=== PATIENT | female | born 1955 | race Caucasian/White ===

== ENCOUNTER → 2023-09-28 15:01 | Outpatient (REF) | payer OTHER, SELFPAY | LOC: WDC 15:01 | PROVIDERS: ATTENDING PHYSICIAN Family Medicine | DX: Z12.31 Encounter for screening mammogram for malignant neoplasm of breast (principal) | CPT/HCPCS: 77063; 77067 ==

== ENCOUNTER → 2024-04-24 11:13 | Outpatient (REF) | payer OTHER, SELFPAY | LOC: RAD 11:13 | PROVIDERS: ATTENDING PHYSICIAN Internal Medicine Rheumatology; FAMILY PHYSICIAN Family Medicine | DX: M25.50 Pain in unspecified joint (principal) | CPT/HCPCS: 73100; 73560; 73565; 73600 ==

== ENCOUNTER 2024-07-21 14:20 | Emergency (ER) | payer OTHER, SELFPAY ==
[2024-07-21 14:24] VITALS: BP 151/79
--- NOTE | 2024-07-21 14:29 | EDRN ---
refusing imaging in triage.
[2024-07-21 15:35] VITALS: BMI 15.6
--- NOTE | 2024-07-21 16:00 | ED.GENMED ---
History of Present Illness
General
Chief Complaint: Fall
Source: patient
Time Seen by Provider: 07/21/24 15:34
History of Present Illness
History of Present Illness:
69-year-old female with past medical history of hypertension, hypothyroidism and depression presenting to the emergency department for evaluation after she was walking around outside and tripped over a curb striking the right frontal scalp on the
side of the curb injuring her right knee and right wrist in the process. Patient states no LOC, no vomiting, no visual changes. She reports she was able to ambulate following but needed some assistance. Denies any use of anticoagulants. Patient
states it feels as if she just has scrapes on her right knee and that she is able to move the right knee without much difficulty. She states minimal pain to the right wrist.
Past History
Past History
ED Past Medical History: HTN, Hypothyroidism and Psychiatric
ED Past Surgical History: None
Social History
Tobacco: Non-smoker
Alcohol: None
Drug: None
Personal:
Living: with family
Review of Systems
Review of Systems
All Other Systems: ROS reviewed and negative except as documented in HPI and ROS
Phy Exam
Physical Exam
Physical Exam:
GENERAL: Alert , in no apparent distress
HEAD: 2 punctate lacerations just superficial to the right eyebrow, no active bleeding
EYE: conjunctiva clear
NECK: Supple, no midline tenderness
ENT: o/p clr, mmm.
CARDIAC: Regular rate and rhythm
LUNGS: Clear breath sounds bilaterally, no acute respiratory distress, no wheezes/rales/rhonchi
NEUROLOGICAL: Alert and oriented
SKIN: Warm and dry, abrasion to the right anterior patella without any active bleeding. Full range of motion of the right knee and wrist without any difficulty. No focal areas of tenderness.
MUSCULOSKELETAL: well perfused.
PSYCH: Normal and appropriate interaction.
Scores
Heart Failure Risk
Heart Failure Risk Score: Not Applicable
Heart Score for Chest Pain Patients
STEMI patient?: Not applicable
Withdrawal Assessment of Alcohol
Withdrawal Assessment Completed?: Not applicable
Course
Orders/Labs/Results
Orders:
Orders
07/21/24 15:34
CT Head W/o Iv Contrast Urgent
Comment:
Reason For Exam: fall, head strike
Vital Signs
Initial and Last Documented VS:
Initial Vital Signs
Temp Pulse Resp BP Pulse Ox
98 F 71 16 151/79 97
07/21/24 14:24 07/21/24 14:24 07/21/24 14:24 07/21/24 14:24 07/21/24 14:24
Last Documented Vital Signs
Temp Pulse Resp BP Pulse Ox
98 F 71 16 151/79 97
07/21/24 14:24 07/21/24 14:24 07/21/24 14:24 07/21/24 14:24 07/21/24 14:24
MDM/Problems Addressed
Differential Diagnosis Includes:
Abrasion, contusion, concussion, intracranial bleeding, patellar fracture, knee contusion, sprain
MDM/Problems Addressed:
69-year-old female presenting to the ER for evaluation after an accidental trip and fall resulting in minor head injury. Patient does have 2 small punctate laceration just above the right eyebrow measuring less than 2 mm in size. No active
bleeding. Will obtain CT of the head for further evaluation. I offered x-ray of the wrist and knee however patient currently declining. She is also declining anything for pain at present time.
*Radiology
Radiology exam reviewed: radiology read reviewed
*Pulse Oximetry
Patient hypoxic: no
*Critical Care Note
Total Time (30-74mins, 75-104mins- exclusive of procedures): Not Applicable
Patient Management
Escalation/DeEscalation of care consider admission/obs:
Dermabond placed over the small punctate laceration just lateral to the right eyebrow. Patient remained with good hemostasis. CT scan shows no acute pathologies however an old left cerebellar lacunar infarct was noted. Patient had no known
history of this. She was provided with a CT printout report as well as the disc. Encouraged to follow-up with primary care provider for this. Patient otherwise stable for discharge home and aware of return precautions to the ER.
ED Attending Note
-
Portions of this chart may have been created with voice recognition software.� Occasional wrong word or��sound alike� substitutions may have occurred due to the inherent limitations of voice recognition software.
Discharge Plan
Departure
Patient Disposition: Home (Routine Discharge)
Date of Disposition: 07/21/24
Time of Disposition: 17:10
Patient with high blood pressure during this ER visit?: Yes
Discharge Problem:
Accidental fall, Abrasion of scalp
Instructions: Skin Abrasions (DC)
Referrals:
Brandi Torrez DO [Family Provider, Family Practice]
Interventions
Interventions:
*Risk Screen - Suicide Last Done: 07/21/24 14:24
*General Assessment Last Done: 07/21/24 15:35
*Neglect/Abuse Screening Last Done: 07/21/24 14:24
*ED COVID-19 Vaccine History Last Done: 07/21/24 15:35
ED-Musculoskeletal Assessment Last Done: 07/21/24 15:35
ED- Neurological Assessment Last Done: 07/21/24 15:35
ED-Skin Assessment Last Done: 07/21/24 15:35
Discharge Date and Time
Print Language: GEORGIAN
== END 2024-07-21 17:44 | disposition home or self-care (01) ==
LOC: EMR 14:20
PROVIDERS: EMERGENCY PHYSICIAN Emergency Medicine; FAMILY PHYSICIAN Family Medicine
DX: S01.111A Laceration without foreign body of right eyelid and periocular area, initial encounter (principal); S00.01XA Abrasion of scalp, initial encounter; S80.211A Abrasion, right knee, initial encounter; W18.09XA Striking against other object with subsequent fall, initial encounter; Y93.01 Activity, walking, marching and hiking; I10 Essential (primary) hypertension; E03.9 Hypothyroidism, unspecified
CPT/HCPCS: 99284; 70450

== ENCOUNTER 2024-08-01 06:23 | Day surgery (SDC) | payer OTHER, SELFPAY | END 2024-08-01 12:46 | disposition home or self-care (01) | LOC: GI 06:23 | PROVIDERS: ATTENDING PHYSICIAN Student in an Organized Health Care Education/Training Program | DX: Z12.11 Encounter for screening for malignant neoplasm of colon (principal); D3A.012 Benign carcinoid tumor of the ileum; K63.89 Other specified diseases of intestine; K62.1 Rectal polyp; K64.0 First degree hemorrhoids; K64.4 Residual hemorrhoidal skin tags; R09.89 Other specified symptoms and signs involving the circulatory and respiratory systems; K44.9 Diaphragmatic hernia without obstruction or gangrene; K31.7 Polyp of stomach and duodenum; R13.10 Dysphagia, unspecified; Z86.0100 Personal history of colon polyps, unspecified | CPT/HCPCS: 45380; 43239; 88305; 88341; 88342 ==

== ENCOUNTER → 2024-08-16 10:58 | Outpatient (REF) | payer OTHER, SELFPAY | LOC: RAD 10:58 | PROVIDERS: ATTENDING PHYSICIAN Student in an Organized Health Care Education/Training Program; FAMILY PHYSICIAN Family Medicine | DX: D3A.8 Other benign neuroendocrine tumors (principal) | CPT/HCPCS: 74177; Q9967 ==

== ENCOUNTER → 2024-09-12 13:33 | Outpatient (REF) | payer OTHER, SELFPAY | LOC: RAD 13:33 | PROVIDERS: ATTENDING PHYSICIAN Internal Medicine Hematology & Oncology; FAMILY PHYSICIAN Family Medicine | DX: C7A.012 Malignant carcinoid tumor of the ileum (principal) | CPT/HCPCS: 74178; Q9967 ==

== ENCOUNTER → 2024-09-20 07:39 | Outpatient (REF) | payer OTHER, SELFPAY | LOC: PET 07:39 | PROVIDERS: ATTENDING PHYSICIAN Internal Medicine Hematology & Oncology | DX: C7A.012 Malignant carcinoid tumor of the ileum (principal) | CPT/HCPCS: 78815 ==

== ENCOUNTER 2024-10-10 06:08 | Day surgery (SDC) | payer OTHER, SELFPAY ==
[2024-10-10 12:47] VITALS: BMI 21.5
[2024-10-10 12:48] VITALS: BP 131/75; BMI 21.5
[2024-10-10 15:45] VITALS: BP 136/101
[2024-10-10 16:00] VITALS: BP 112/61
[2024-10-10 16:15] VITALS: BP 116/65
[2024-10-10] MEDS: TYLENOL 650 MG PO (16:16)
== END 2024-10-10 16:35 | disposition home or self-care (01) ==
LOC: GI 06:08
PROVIDERS: ATTENDING PHYSICIAN Internal Medicine Gastroenterology
DX: K31.7 Polyp of stomach and duodenum (principal); D13.2 Benign neoplasm of duodenum
CPT/HCPCS: 43254; 88305

== ENCOUNTER 2024-11-02 05:56 | Inpatient (IN) | payer OTHER, SELFPAY ==
[2024-10-25 09:07] LABS: INR 0.84; PT 12.0 Sec (11.4-14.6)
[2024-10-25 09:08] LABS: APTT 26.3 Sec (23.4-35.0)
[2024-10-25 09:25] LABS: Glycohemoglobin (HgbA1c) 5.6 % (4.0-5.6)
[2024-10-25 09:35] LABS: ALT (SGPT) 25 U/L (0-35); AST (SGOT) 27 U/L (14-36); Albumin 4.2 g/dl (3.5-5.0); Alkaline Phosphatase 85 U/L (38-126); Blood Urea Nitrogen 11 mg/dl (7-17); Calcium 9.2 mg/dl (8.4-10.2); Carbon Dioxide 29 mmol/L (22-30); Chloride 100 mmol/L (98-107); Glucose 85 mg/dl (70-99); Potassium 4.5 mmol/L (3.5-5.1); Sodium 135 mmol/L (135-145); Total Protein 6.5 g/dl (6.3-8.2); eGFR > 60.00
[2024-10-25 09:46] LABS: Hematocrit 34.2 % (37.0-47.0); Hemoglobin 11.3 g/dL (12.0-16.0); Mean Corp Hgb Conc. 33.0 g/dL (33.0-37.0); Mean Corpuscular Volume 85.9 fL (81.0-99.0); Platelet Count 291 10^3/uL (130-400); Red Cell Dist. Width 13.2 % (11.5-14.5)
[2024-10-25 14:16] VITALS: BMI 21.1
[2024-11-02] VITALS (15 sets, daily range): BP systolic 102–136; BP diastolic 59–77; BMI 21.1
[2024-11-02] MEDS: NEURONTIN 600 MG PO (06:56)
[2024-11-02] MEDS: NORMOSOL-R/PLASMALYTE-A 1000 IV ×2 (06:56→13:31)
[2024-11-02] MEDS: TYLENOL 1000 MG PO (06:56)
[2024-11-02] MEDS: HEPARIN 5000 UNITS SC (07:11)
[2024-11-02] MEDS: RELISTOR 12 MG SC (07:21)
--- NOTE | 2024-11-02 10:44 | W.IMMPOSTOP ---
Addendum entered and electronically signed by Gregory Reddy MD 11/02/24 11:06:
Patient's updated via phone.
Original Note:
Surgical Immed Post Op Note
-
Primary Surgeon: Alejandra Reddy MD
Assisting Surgeon: LYNNETTE Yung; BILL Salcido
Pre-op Diagnosis: terminal ileal carcinoid tumor
Post-op Diagnosis: same
Procedure Performed: robotic right colectomy
Anesthesia Type: general plus local
Specimen / Cultures: right colon to include portion of terminal ileum
Estimated Blood Loss: 30 cc
Complications: no immediate
Operative Findings: mass of terminal ileum
Ayoub in bladder.
Will send to med surg.
[2024-11-02 11:38] LABS: Hematocrit 33.6 % (37.0-47.0); Hemoglobin 11.7 g/dL (12.0-16.0); Mean Corp Hgb Conc. 34.8 g/dL (33.0-37.0); Mean Corpuscular Volume 84.2 fL (81.0-99.0); Nucleated Red Blood Cells % 0 %; Platelet Count 219 10^3/uL (130-400); Red Cell Dist. Width 12.9 % (11.5-14.5)
[2024-11-02 12:01] LABS: Blood Urea Nitrogen 9 mg/dl (7-17); Calcium 7.8 mg/dl (8.4-10.2); Carbon Dioxide 27 mmol/L (22-30); Chloride 99 mmol/L (98-107); Estimated Creatinine Clearance 65 ml/min; Glucose 150 mg/dl (70-99); Magnesium 3.7 mg/dl (1.6-2.3); Potassium 3.3 mmol/L (3.5-5.1); Sodium 133 mmol/L (135-145); eGFR > 60.00
[2024-11-02] MEDS: TORADOL 10 MG IV ×2 (12:34→18:33)
[2024-11-02] MEDS: TYLENOL PO (12:43)
[2024-11-02] MEDS: DILAUDID 0.25 MG IV (13:12)
[2024-11-02] MEDS: KCL 270 MEQ IV (15:54)
[2024-11-02] MEDS: TYLENOL 650 MG PO ×2 (15:54→20:45)
--- NOTE | 2024-11-02 16:38 | PTCARENOTE ---
Pt arrived to [facility] s/p robotic right colectomy. 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 Ayoub catheter with yellow output to be removed POD #2. knee high teds/scds on pt. Admission questions answered. at bedside. Bed locked and in lowest
position. Care ongoing.
[2024-11-02] MEDS: ZOLOFT 100 MG PO (21:45)
[2024-11-02] MEDS: LIPITOR 40 MG PO (21:45)
[2024-11-02] MEDS: SYNTHROID 100 MCG PO (21:45)
[2024-11-02] MEDS: DILAUDID 0.5 MG IV (21:47)
[2024-11-03] VITALS (7 sets, daily range): BP systolic 124–143; BP diastolic 73–80; PULSE 73; O2SAT 97; BMI 20.6
[2024-11-03] MEDS: TORADOL 10 MG IV ×5 (00:49→23:08)
[2024-11-03] MEDS: TYLENOL PO ×2 (00:54→20:05)
[2024-11-03] MEDS: TYLENOL 650 MG PO ×5 (04:45→23:08)
[2024-11-03] MEDS: NORMOSOL-R/PLASMALYTE-A 1000 IV ×2 (06:23→18:22)
[2024-11-03 07:57] LABS: Hematocrit 32.4 % (37.0-47.0); Hemoglobin 10.8 g/dL (12.0-16.0); Mean Corp Hgb Conc. 33.3 g/dL (33.0-37.0); Mean Corpuscular Volume 85.0 fL (81.0-99.0); Nucleated Red Blood Cells % 0 %; Platelet Count 234 10^3/uL (130-400); Red Cell Dist. Width 13.3 % (11.5-14.5)
[2024-11-03 08:32] LABS: Blood Urea Nitrogen 7 mg/dl (7-17); Calcium 8.6 mg/dl (8.4-10.2); Carbon Dioxide 27 mmol/L (22-30); Chloride 102 mmol/L (98-107); Estimated Creatinine Clearance 65 ml/min; Glucose 94 mg/dl (70-99); Magnesium 2.7 mg/dl (1.6-2.3); Potassium 4.2 mmol/L (3.5-5.1); Sodium 134 mmol/L (135-145); eGFR > 60.00
[2024-11-03] MEDS: PROTONIX 40 MG PO (09:50)
[2024-11-03] MEDS: RELISTOR 12 MG SC (09:50)
[2024-11-03] MEDS: DILAUDID 0.5 MG IV (10:04)
--- NOTE | 2024-11-03 10:06 | W.PN.CRS1 ---
Addendum entered and electronically signed by Gregory Reddy MD 11/03/24 18:49:
Of note, this patient had hypokalemia and hyponatremia.
Original Note:
Today's Communication / Plan
-
maintain clears
dc crespo
lovenox
OOB
Assessment/Plan
-
POD#1 robotic right colectomy
WBC: 8.9, Hgb 10.8 (11.7), vitals normal
-Maintain clears for now with IVFs.
-Okay to advance to fulls later if no further nausea.
-OOB as tolerated with PT/OT
-DC crespo
-OR pathology pending
-Start Lovenox for DVT prophylaxis. TEDS/SCDS in place.
-Pain control: Tylenol and Toradol standing, Dilaudid PRN
-Will need Eliquis 2.5mg BID for 1 month on discharge. Consulted CM for Eliquis pricing (if too $, will need Lovenox). Discussed with patient.
Subjective Data
Procedure
11/02/2024- robotic right colectomy
Subjective Data
Date of Service: November 03, 2024
Patietn states she has no flatus. She has some nausea and feels lightheaded.
Objective Data
-
Vital Signs
Temp Pulse Resp BP Pulse Ox
98.6 F 77 16 129/80 98
11/03/24 07:00 11/03/24 07:00 11/03/24 07:00 11/03/24 07:00 11/03/24 07:00
Intake & Output
11/02/24 11/03/24 11/04/24
06:59 06:59 06:59
Intake Total 1740 / 1740
Output Total 2825 / 2825
Balance -1085 / -1085
Intake:
Oral fluids 240 / 240
IV fluids (Total) 1500 / 1500
normsol 300 / 300
Output:
Urine, Mega 2825 / 2825
Lab Results
11/03/24 07:30
11/03/24 07:30
Physical Exam
-
General: No Acute Distress and AOx3
Abdomen: Soft, Non Distended and Tender
Skin: Warm and Dry
Incision: Clear, Dry, Intact
--- NOTE | 2024-11-03 11:47 | CM ---
Addendum entered by Allison Case RN 11/03/24 14:51:
Free coupon card for Eliquis for one month provided to the patient.
Addendum entered by Allison Case RN 11/03/24 12:02:
Received CM consult for ravi check of Eliquis 2.5mg po BID - per [employer] $141.56. Per [facility] pharmacy, $141.56.
Original Note:
Reviewed the chart notes and spoke with the patient at the bedside. Patient is POD#1 robotic right colectomy. Patient's current diet is full liquid. The patient resides with her spouse in a one story home with two steps total to enter. The
patient reports no DME/VN/SNF in the past. The patient confirmed her pharmacy of choice is [facility]. CM continues to be available to patient/family and is monitoring medical plan for needs at discharge.
Plan: Discharge to home when medically stable. Spouse will provide transportation. No needs anticipated at this time.
--- NOTE | 2024-11-03 13:07 | PN.CDI ---
CDI
- -
CDI:
Physician Documentation Request
Admit Date: 11/02/24 05:56
Dear Doctor Maureen,
Clinical Indicators:
Patient admitted with terminal ileal carcinoid tumor; s/p Robotic right colectomy 11/02.
IVF: Normosol 80 ml/hr
Sodium trend:
11/02/24 11/03/24
11 07:30
Sodium 133 L 134 L
Based on the above, could you clarify in the progress notes, the appropriate diagnosis, if significant, that supports the above abnormalities and additional evaluation, monitoring and/or treatment rendered:
Hyponatremia
Abnormal lab value, clinically insignificant
Other
Use of terms such as suspected, likely, concern for, or probable (associated with a specific diagnosis that is being evaluated, monitored, or treated as if it exists) are acceptable and can be coded in the inpatient setting, when documented at the
time of discharge.
Thank you,
BRADY Barrera RN
CDI Specialist
available via tiger text
Please use your independent medical judgment in providing your response.
--- NOTE | 2024-11-03 13:13 | PN.CDI ---
CDI
- -
CDI:
Physician Documentation Request
Admit Date: 11/02/24 05:56
Dear Doctor Maureen,
Clinical Indicators:
Patient admitted with terminal ileal carcinoid tumor; s/p Robotic right colectomy 11/02.
11/02 KCL 40 meq IV rider x 1.
Potassium level:
11/02/24
11:29
Potassium 3.3 L
Based on the above, could you clarify in the progress notes, the appropriate diagnosis, if significant, that supports the above abnormalities and additional evaluation, monitoring and/or treatment rendered:
Hypokalemia
Abnormal lab value, clinically insignificant
Other, please specify
Use of terms such as suspected, likely, concern for, or probable (associated with a specific diagnosis that is being evaluated, monitored, or treated as if it exists) are acceptable and can be coded in the inpatient setting, when documented at the
time of discharge.
Thank you,
BRADY Barrera RN
CDI Specialist
available via tiger text
Please use your independent medical judgment in providing your response.
[2024-11-03] MEDS: LOVENOX 40 MG SC (18:24)
[2024-11-03] MEDS: LIPITOR 40 MG PO (22:47)
[2024-11-03] MEDS: SYNTHROID 100 MCG PO (22:47)
[2024-11-03] MEDS: ZOLOFT 100 MG PO (22:47)
[2024-11-04] MEDS: TYLENOL PO (04:52)
[2024-11-04 06:00] VITALS: BMI 20.6
[2024-11-04] MEDS: TORADOL 10 MG IV ×3 (06:01→17:46)
[2024-11-04 06:16] LABS: Hematocrit 30.6 % (37.0-47.0); Hemoglobin 10.5 g/dL (12.0-16.0); Mean Corp Hgb Conc. 34.3 g/dL (33.0-37.0); Mean Corpuscular Volume 85.5 fL (81.0-99.0); Nucleated Red Blood Cells % 0 %; Platelet Count 207 10^3/uL (130-400); Red Cell Dist. Width 13.2 % (11.5-14.5)
[2024-11-04 06:37] LABS: Blood Urea Nitrogen 10 mg/dl (7-17); Calcium 8.8 mg/dl (8.4-10.2); Carbon Dioxide 31 mmol/L (22-30); Chloride 103 mmol/L (98-107); Estimated Creatinine Clearance 65 ml/min; Glucose 88 mg/dl (70-99); Potassium 4.3 mmol/L (3.5-5.1); Sodium 136 mmol/L (135-145); eGFR > 60.00
[2024-11-04 07:35] VITALS: BP 150/76
[2024-11-04] MEDS: TYLENOL 650 MG PO ×4 (08:23→20:25)
[2024-11-04] MEDS: PROTONIX 40 MG PO (08:27)
[2024-11-04] MEDS: RELISTOR 12 MG SC (08:28)
[2024-11-04] MEDS: FLUSH (NSS) 1 FLUSH IV (12:14)
[2024-11-04] MEDS: TUMS CHEWABLE TABLET 400 MG PO (12:40)
--- NOTE | 2024-11-04 14:09 | W.PN.GS2 ---
Addendum entered and electronically signed by Jaiden Kim MD 11/04/24 15:33:
Patient seen and examined this afternoon in follow-up with surgical PATHOLOGY TECHNOLOGIST.
Mild nausea after toast for last meal.
No vomiting. Continues to pass flatus and small smear of stool
Mild abdominal bloating/distention but not getting worse
Postop pain controlled
AFVSS
NAD AAO x 3
ABD: Soft, not significantly distended, mild tenderness palpation at incision sites. Incisions with glue dressings.
A/P: POD #2 status post robotic assisted laparoscopic right hemicolectomy
With caution advancing diet as tolerated but advised to go slow and consume smaller portions just for comfort
Continue supportive care and typical postoperative care otherwise
Original Note:
Today's Communication / Plan
-
Advance diet
Assessment / Plan
-
69 yo female presenting for operative management terminal ileal carcinoid tumor now POD #2 robotic right colectomy
AFVSS
Tolerating FLD but with poor appetite. Passing flatus
Voiding without difficulty since crespo removed
Pain well managed
Labs stable
Hyponatremia and hypokalemia resolved
Plan:
Low residue diet as tolerated
Analgesics scheduled and prn, will add PO tramadol
OR path pending
D/C IVF
OOB/Ambulate as able, encouraged ambulation in halls
Lovenox and scds for vte ppx
Subjective Data
-
Date of Service: November 04, 2024
Pt seen and examined at bedside. OOB to chair. Tolerating fulls but not much appetite. Pain well managed. Denies n/v. Passing flatus.
Objective Data
-
Intake and Output
11/03/24 11/04/24 11/05/24
06:59 06:59 06:59
Intake Total 1740 / 1740 1820 / 1820 570 / 570
Output Total 2825 / 2825 3710 / 3710 700 / 700
Balance -1085 / -1085 -1890 / -1890 -130 / -130
Intake:
Oral fluids 240 / 240 1020 / 1020 570 / 570
IV fluids (Total) 1500 / 1500 800 / 800
normsol 300 / 300
Output:
Urine, Crespo 2825 / 2825 850 / 850
Urine, Voided 2860 / 2860 700 / 700
Other:
Number of approximated MODERATE 2
amounts of urine
Vital Signs
Temp Pulse Resp BP Pulse Ox
97.8 F 65 15 150/76 98
11/04/24 07:35 11/04/24 07:35 11/04/24 07:35 11/04/24 07:35 11/04/24 08:30
Lab Results
11/04/24 05:53
11/04/24 05:53
Calcium 8.8 mg/dl (8.4-10.2) 11/04/24 05:53
Magnesium 2.7 mg/dl (1.6-2.3) H 11/03/24 07:30
Total Bilirubin 0.4 mg/dl (0.2-1.3) 10/25/24 07:27
AST 27 U/L (14-36) 10/25/24 07:27
ALT 25 U/L (0-35) 10/25/24 07:27
Alkaline Phosphatase 85 U/L (38-126) 10/25/24 07:27
Total Protein 6.5 g/dl (6.3-8.2) 10/25/24 07:27
Albumin 4.2 g/dl (3.5-5.0) 10/25/24 07:27
Physical Exam
-
NAD
ABD soft, nd, minimal incisional tenderness
Incisions well approximated, intact glue with mild ecchymosis
Patient has a crespo catheter: No
Patient has a central line: No
[2024-11-04 15:25] VITALS: BP 159/80
[2024-11-04] MEDS: LOVENOX 40 MG SC (17:48)
[2024-11-04] MEDS: SYNTHROID 100 MCG PO (21:20)
[2024-11-04] MEDS: ZOLOFT 100 MG PO (21:20)
[2024-11-04] MEDS: LIPITOR 40 MG PO (21:20)
[2024-11-04 23:00] VITALS: BP 145/86
[2024-11-05] MEDS: TYLENOL 650 MG PO ×4 (00:06→15:34)
[2024-11-05] MEDS: TORADOL 10 MG IV ×3 (00:07→11:47)
[2024-11-05] MEDS: TYLENOL PO (04:45)
[2024-11-05 05:01] VITALS: BMI 19.8
[2024-11-05 08:00] VITALS: BP 153/91
[2024-11-05] MEDS: RELISTOR 12 MG SC (08:13)
[2024-11-05] MEDS: PROTONIX 40 MG PO (08:13)
--- NOTE | 2024-11-05 09:47 | W.PN.GS2 ---
Addendum entered and electronically signed by Jaiden Kim MD 11/05/24 09:55:
pt seen and examine with IRRIGATION TEACHER, agree with progress note.
overall pt feeling and doing well
+ gi function and tolerating dietary advancement
AFVSS
ABD: soft, ND, minimal incisional tenderness, incisions with glue dressings
A/P: POD#3 s/p RAL RHC
stable for d/c home, instructions reviewed
Original Note:
Today's Communication / Plan
-
Anticipate d/c later today
Assessment / Plan
-
69 yo female presenting for operative management terminal ileal carcinoid tumor now POD #3 robotic right colectomy
AFVSS
Tolerating diet, passing flatus/stools
Pain well managed
Plan:
Low residue diet as tolerated
Analgesics as needed
OR path pending
OOB/Ambulate as able, encouraged ambulation in halls
Lovenox and scds for vte ppx
dispo planning
Subjective Data
-
Date of Service: November 05, 2024
Pt seen and examined at bedside with Dr. Kim. Intermittent mild nausea which quickly resolves. Passing flatus and had several loose stools this am. Minimal pain/soreness. Tolerating more solid food today.
Objective Data
-
Intake and Output
11/04/24 11/05/24 11/06/24
06:59 06:59 06:59
Intake Total 1820 / 1820 1510 / 1510
Output Total 3710 / 3710 700 / 700
Balance -1890 / -1890 810 / 810
Intake:
Oral fluids 1020 / 1020 1510 / 1510
IV fluids (Total) 800 / 800
Output:
Urine, Ayoub 850 / 850
Urine, Voided 2860 / 2860 700 / 700
Other:
Number of approximated MODERATE 1
amounts of urine
Number of unmeasured liquid
stools
Rectum 2
Vital Signs
Temp Pulse Resp BP Pulse Ox
98.5 F 74 16 153/91 97
11/05/24 08:00 11/05/24 08:00 11/05/24 08:00 11/05/24 08:00 11/05/24 08:00
Lab Results
11/04/24 05:53
11/04/24 05:53
Calcium 8.8 mg/dl (8.4-10.2) 11/04/24 05:53
Magnesium 2.7 mg/dl (1.6-2.3) H 11/03/24 07:30
Total Bilirubin 0.4 mg/dl (0.2-1.3) 10/25/24 07:27
AST 27 U/L (14-36) 10/25/24 07:27
ALT 25 U/L (0-35) 10/25/24 07:27
Alkaline Phosphatase 85 U/L (38-126) 10/25/24 07:27
Total Protein 6.5 g/dl (6.3-8.2) 10/25/24 07:27
Albumin 4.2 g/dl (3.5-5.0) 10/25/24 07:27
Physical Exam
-
NAD
ABD soft, nd, nt
Incisions healing well, intact glue
--- NOTE | 2024-11-05 09:53 | W.DCSUMMARY ---
Discharge Summary
Discharge Data
Date of Admission: 11/02/24
Date of Discharge: 11/05/24
-
Pending Results: No
Hospital Course
69 yo female who presented for operative management of terminal ileal carcinoid tumor with robotic right colectomy preformed. She tolerated the procedure well. Diet was able to be advanced post operatively with good bowel recovery. Pain was well
managed prior to discharge.
Discharge Plan
-
Patient Disposition: Home (Routine Discharge)
Discharge Diagnosis/Procedures: robotic right colectomy
Condition: Good
Diet: Low Residue
Activity: No strenuous activity
Additional Activity: No lifting over 10lbs (gallon of milk)
Driving Restrictions: Not until seen by your Dr
Wound Care: Allow glue to naturally fall off. Do not pick at incisions.
Instructions: Apixaban, Low-fiber diet
Referrals:
Gregory Reddy MD [Active, [facility]] - in two weeks
Brandi Torrez DO [Family Provider, Family Practice]
Additional Discharge Medication Instructions: Tylenol as needed for pain. Maximum dose of Tylenol is 4,000mg in 24 hours.
Do not take ibuprofen and meloxicam together. If you are not taking meloxicam, ok to use ibuprofen as needed for pain.
Prescriptions:
New
Eliquis 2.5 mg tablet
2.5 mg PO BID 30 Days Qty: 60 0RF
tramadol 50 mg tablet
25 - 50 mg PO Q6HPRN PRN (Reason: severe pain/breakthrough pain) Qty: 15 0RF
ondansetron 4 mg tablet,disintegrating
4 mg PO Q8HPRN PRN (Reason: nausea/vomiting) Qty: 10 0RF
Continued
atorvastatin 40 mg Tablet
40 mg PO HS
sertraline 100 mg Tablet
100 mg PO HS
meloxicam 7.5 mg Tablet
7.5 mg PO HS
levothyroxine 100 mcg Tablet
100 mcg PO HS
pantoprazole 40 mg Tablet,Delayed Release (Dr/Ec)
40 mg PO DAILY PRN (Reason: GERD)
cetirizine [Zyrtec] 10 mg Tablet
10 mg PO HS PRN (Reason: congestion)
Vitamin D3
1 dose PO DAILY
acetaminophen 500 mg Tablet
500 mg PO DAILY PRN (Reason: pain)
Discontinued
ibuprofen [Motrin] 400 mg Tablet
200 mg PO DAILY PRN (Reason: pain)
metronidazole 500 mg Tablet
500 mg PO DIRECTED
Patient Comments:
start as directed day before procedure, took at 1400,1500,and 2200 on 11/01/24
neomycin 500 mg Tablet
1,000 mg PO DIRECTED
Patient Comments:
start as directed day before procedure, took at 1400,1500,and 2200 on 11/01/24
Sutab 1.479-0.188- 0.225 gram Tablet
0 tab PO DIRECTED
Patient Comments:
start as directed day before procedure
Discharge Orders:
Discharge Patient (As Directed); Ordered 11/05/24
Ordered By: Reyna Baez
Discharge Date and Time
Print Language: YORUBA
--- NOTE | 2024-11-05 14:17 | CM ---
Pt for dc today. No needs identified.
will provide transport. IMM signed.
[2024-11-05 16:05] VITALS: BP 149/80
--- NOTE | 2024-11-10 06:22 | PN.CDI ---
CDI
- -
CDI:
Dear Doctor Maureen,
Patient presents with Terminal ileal carcinoid tumor for the colectomy.
Path results:
Ileum and right colon:
-Well differentiated neuroendocrine tumor with extension through the muscularis propria into the subserosal soft tissue, margins negative.
-Metastatic tumor in 3 of 28 lymph nodes.
Please, clarify the diagnosis with the above findings:
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
Other(please clarify)
Thank you.
Lizeth Gaines. Aeronautical Drafter Inpatient.
--- NOTE | 2024-11-10 17:55 | W.PN.UPDATE ---
Update Note
Progress Note Update
Of note, the pathology report from the OR eventually came out confirming the suspected diagnosis of well-differentiated neuroendocrine tumor (aka carcinoid) with 3/28 LNs positive and clean margins. Therefore, malignant neuroendocrine tumor of the
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
== END 2024-11-05 17:04 | disposition home or self-care (01) | DRG 330 ==
LOC: 2 SOUTH 05:56
PROVIDERS: Physician Assistant; ADMITTING PHYSICIAN Surgery; FAMILY PHYSICIAN Family Medicine
PROC: 0DBB4ZZ Excision of Ileum, Percutaneous Endoscopic Approach (ICD-10-PCS; 2024-11-02)
PROC: 8E0W4CZ Robotic Assisted Procedure of Trunk Region, Percutaneous Endoscopic Approach (ICD-10-PCS; 2024-11-02)
PROC: 0DTF4ZZ Resection of Right Large Intestine, Percutaneous Endoscopic Approach (ICD-10-PCS; 2024-11-02)
DX: C7A.012 Malignant carcinoid tumor of the ileum (principal); C7B.09 Secondary carcinoid tumors of other sites; E87.1 Hypo-osmolality and hyponatremia; K21.9 Gastro-esophageal reflux disease without esophagitis; E03.9 Hypothyroidism, unspecified; E87.6 Hypokalemia; Z79.82 Long term (current) use of aspirin; Z79.890 Hormone replacement therapy
CPT/HCPCS: 36415; 80048; 80053; 83036; 83735; 85025; 85027; 85610; 85730; 86850; 86900; 86901; 88309; 88342; 93005; 97116; 97162; 97166; J1335

== ENCOUNTER → 2024-12-20 07:21 | Outpatient (REF) | payer OTHER, SELFPAY | LOC: MRI 07:21 | PROVIDERS: ATTENDING PHYSICIAN Internal Medicine Hematology & Oncology; FAMILY PHYSICIAN Family Medicine; REFERRING PHYSICIAN Surgery | DX: C7A.012 Malignant carcinoid tumor of the ileum (principal) | CPT/HCPCS: 74183; A9575 ==

== ENCOUNTER 2025-02-02 06:07 | Inpatient (IN) | payer OTHER, SELFPAY ==
[2025-01-16 08:43] LABS: Hematocrit 35.1 % (37.0-47.0); Hemoglobin 11.4 g/dL (12.0-16.0); Mean Corp Hgb Conc. 32.5 g/dL (33.0-37.0); Mean Corpuscular Volume 80.5 fL (81.0-99.0); Platelet Count 284 10^3/uL (130-400); Red Cell Dist. Width 14.0 % (11.5-14.5)
[2025-01-16 08:49] LABS: INR 1.00; PT 13.5 Sec (11.4-14.6)
[2025-01-16 08:50] LABS: APTT 26.8 Sec (23.4-35.0)
[2025-01-16 09:05] LABS: ALT (SGPT) 15 U/L (0-35); AST (SGOT) 25 U/L (14-36); Albumin 4.3 g/dl (3.5-5.0); Alkaline Phosphatase 74 U/L (38-126); Blood Urea Nitrogen 15 mg/dl (7-17); Calcium 9.1 mg/dl (8.4-10.2); Carbon Dioxide 29 mmol/L (22-30); Chloride 102 mmol/L (98-107); Glucose 81 mg/dl (70-99); Potassium 4.5 mmol/L (3.5-5.1); Sodium 135 mmol/L (135-145); Total Protein 7.1 g/dl (6.3-8.2); eGFR > 60.00
[2025-01-17 14:51] VITALS: BMI 21.3
[2025-02-02] VITALS (12 sets, daily range): BP systolic 112–139; BP diastolic 63–83; BMI 21.3
[2025-02-02] MEDS: HEPARIN 5000 UNITS SC (07:08)
[2025-02-02] MEDS: TYLENOL 1000 MG PO (07:08)
[2025-02-02] MEDS: NEURONTIN 300 MG PO (07:08)
--- NOTE | 2025-02-02 10:14 | OR.RPT ---
Operative Report
Operative Report
Date of Operation: February 02, 2025
Preoperative Diagnosis: Liver Metastatic Disease - C787
Postoperative Diagnosis: Same
Surgeon: Narciso Schmitt M.D.
Operation: Resection of the segment VIII tumor - 97697
Anesthesia: General Anesthesia
Estimated Blood Loss: 50 cc
Drains: None
Specimen: Segment VIII tumor, deep and 9:00 margins
Findings: Solitary segment VIII liver tumor
Complications: None
Procedure:
The patient was taken to the operating room and placed in the usual supine position. After adequate general endotracheal anesthesia was established, the patient's abdomen was prepped and draped in the usual sterile fashion. At this time, a right
subcostal incision was made with a #10 blade, and this was taken through the skin into the subcutaneous tissue. The fascia was divided, and the underlying muscles were also divided using electrocautery, and the abdomen was entered. Upon entering the
abdominal cavity, an exploration was performed. The liver was palpated, and no palpable tumor was identified. At this time, an intraoperative US was performed. The entire liver was scanned, and only one tumor in segment VIII was identified. Next,
the right liver lobe was mobilized medially by placing the packs behind the liver and above the liver to bring segment VIII down and towards the middle. Another ultrasound was performed, and the tumor was re-identified. The segment 8 resection was
performed by using an Aquamantys bipolar radiofrequency energy device by transecting the liver parenchyma, and the vessels were carefully ligated using a Harmonic Scalpel. The big vessels were also ligated with #3-0 chromic suture. The tumor was
completely resected and sent to pathology for gross margins, which revealed close margins involving the deep and 9:00 margins. Additional margins were taken and sent to the pathology department. Hemostasis was performed using Aquamantys and spraying
the defect with Tisseel.
At this time, the abdominal incision was closed. The posterior fascia was approximated with 1 Vicryl in a running fashion. The muscles were reapproximated with a 1 Vicryl in a running fashion. The anterior fascia was also approximated with 1 Vicryl
in a running fashion. The subcutaneous tissue was reapproximated with #3-0 Vicryl in a running fashion. The skin was approximated with #4-0 Monocryl in a running subcuticular fashion. The Steri-Strips and sterile dressings were applied. The patient
was extubated without any problems. The patient was transferred to the recovery room. The final needle, sponge, and instrument counts were correct.
[2025-02-02 10:49] LABS: Hematocrit 30.7 % (37.0-47.0); Hemoglobin 10.0 g/dL (12.0-16.0); Mean Corp Hgb Conc. 32.6 g/dL (33.0-37.0); Mean Corpuscular Volume 80.4 fL (81.0-99.0); Platelet Count 228 10^3/uL (130-400); Red Cell Dist. Width 15.0 % (11.5-14.5)
[2025-02-02 10:59] LABS: ALT (SGPT) 156 U/L (0-35); AST (SGOT) 221 U/L (14-36); Albumin 3.2 g/dl (3.5-5.0); Alkaline Phosphatase 63 U/L (38-126); Total Protein 5.6 g/dl (6.3-8.2)
[2025-02-02 11:01] LABS: INR 1.07; PT 14.0 Sec (11.4-14.6)
[2025-02-02] MEDS: ZOFRAN 4 MG IV ×2 (11:11→19:58)
[2025-02-02] MEDS: D5/0.9% SODIUM CHLORIDE 1000 IV (12:10)
[2025-02-02] MEDS: MORPHINE SULFATE 2 MG IV ×2 (13:27→20:24)
[2025-02-02] MEDS: ROXICODONE 5 MG PO ×2 (16:45→22:34)
[2025-02-02] MEDS: NEURONTIN 200 MG PO ×2 (16:45→22:34)
--- NOTE | 2025-02-02 17:29 | PTCARENOTE ---
Received patient from PACU via bed around 1200 in stable condition. Right abdominal dressing with scant bloody drainage. at bedside. Patient oriented to room. Call tompkins in reach.
[2025-02-02] MEDS: ZOLOFT 100 MG PO (22:34)
[2025-02-02] MEDS: SYNTHROID 100 MCG PO (22:34)
[2025-02-02] MEDS: COLACE 100 MG PO (22:36)
[2025-02-03] VITALS (7 sets, daily range): BP systolic 115–133; BP diastolic 63–71; PULSE 75
[2025-02-03] MEDS: D5/0.9% SODIUM CHLORIDE 1000 IV (00:06)
[2025-02-03] MEDS: ROXICODONE 5 MG PO (06:30)
[2025-02-03 08:21] LABS: Hematocrit 29.4 % (37.0-47.0); Hemoglobin 9.8 g/dL (12.0-16.0); Mean Corp Hgb Conc. 33.3 g/dL (33.0-37.0); Mean Corpuscular Volume 76.4 fL (81.0-99.0); Platelet Count 230 10^3/uL (130-400); Red Cell Dist. Width 15.0 % (11.5-14.5)
[2025-02-03] MEDS: MORPHINE SULFATE 2 MG IV (08:48)
[2025-02-03] MEDS: NEURONTIN 200 MG PO ×3 (08:48→20:57)
[2025-02-03] MEDS: COLACE 100 MG PO ×2 (08:48→20:57)
[2025-02-03 08:51] LABS: ALT (SGPT) 205 U/L (0-35); AST (SGOT) 211 U/L (14-36); Albumin 3.3 g/dl (3.5-5.0); Alkaline Phosphatase 51 U/L (38-126); Total Protein 5.9 g/dl (6.3-8.2)
--- NOTE | 2025-02-03 10:53 | W.PN.GENERIC ---
Assessment / Plan
-
S/p partial liver resection POD #1
Stable
DC crespo - ambulate
Will add Toradol for pain
DC IV pain med
Await path
Physician Progress Note
Subjective
C/o some incisional pain
Objective
Vital Signs
Temp Pulse Resp BP Pulse Ox
98.5 F 76 16 127/68 96
02/03/25 07:45 02/03/25 07:45 02/03/25 07:45 02/03/25 07:45 02/03/25 07:45
Lab Results
02/03/25 07:33
01/16/25 07:47
Abdomen - soft ND NT. Incision - CDI
[2025-02-03] MEDS: TORADOL 15 MG IV ×2 (12:43→17:16)
[2025-02-03] MEDS: ZOFRAN 4 MG IV (12:43)
--- NOTE | 2025-02-03 13:44 | CM ---
Initial assessment completed with patient who lives with her in a 1 story plus basement home with 2 steps to enter. 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 No DME. No in-home services. Does have a HC-POA. No VA
benefits. No psychiatric hospitalizations.PCP is Dr. Brandi Torrez. Pharmacy is [facility] on [address] in [place]. Discharge POC: Anticipate home with no needs.
[2025-02-03] MEDS: ZOLOFT 100 MG PO (20:57)
[2025-02-03] MEDS: SYNTHROID 100 MCG PO (21:00)
[2025-02-04] MEDS: TORADOL 15 MG IV ×4 (00:09→17:16)
[2025-02-04 07:31] LABS: Hematocrit 28.3 % (37.0-47.0); Hemoglobin 9.4 g/dL (12.0-16.0); Mean Corp Hgb Conc. 33.2 g/dL (33.0-37.0); Mean Corpuscular Volume 77.3 fL (81.0-99.0); Platelet Count 205 10^3/uL (130-400); Red Cell Dist. Width 15.2 % (11.5-14.5)
[2025-02-04 07:52] LABS: ALT (SGPT) 171 U/L (0-35); AST (SGOT) 126 U/L (14-36); Albumin 3.2 g/dl (3.5-5.0); Alkaline Phosphatase 57 U/L (38-126); Total Protein 5.7 g/dl (6.3-8.2)
[2025-02-04 07:57] VITALS: BP 134/76
[2025-02-04] MEDS: ZOFRAN 4 MG IV ×2 (07:58→17:15)
[2025-02-04] MEDS: NEURONTIN 200 MG PO ×3 (07:59→22:18)
[2025-02-04] MEDS: COLACE 100 MG PO ×2 (07:59→20:45)
--- NOTE | 2025-02-04 12:51 | W.PN.GENERIC ---
Assessment / Plan
-
S/p partial liver resection POD #2
Stable
Ambulate
Await path.
If continues to do well, possibe dc later today or tomorrow.
Physician Progress Note
Subjective
Better pain control but still has incisional pain when moving
Objective
Vital Signs
Temp Pulse Resp BP Pulse Ox
98.2 F 77 16 134/76 97
02/04/25 07:57 02/04/25 07:57 02/04/25 07:57 02/04/25 07:57 02/04/25 07:57
Lab Results
02/04/25 06:46
01/16/25 07:47
Abdomen - soft ND NT. Incision - CDI
[2025-02-04 15:40] VITALS: BP 136/74
[2025-02-04] MEDS: SYNTHROID 100 MCG PO (22:18)
[2025-02-04] MEDS: ZOLOFT 100 MG PO (22:18)
[2025-02-04 23:00] VITALS: BP 152/84
[2025-02-05] MEDS: TORADOL 15 MG IV ×3 (00:42→11:21)
[2025-02-05 07:20] VITALS: BP 136/71
--- NOTE | 2025-02-05 07:45 | W.DS.TRANS ---
DC Summary - [facility]
-
Discharge Instructions:
Sleep Apnea Risk Low
Discharge Diagnosis/Procedures hepatic metastasis of the neuroendocrine tumor
Diet No restrictions
Activity No strenuous activity,As tolerated
Driving Restrictions Not until seen by your Dr
Bathing Restrictions OK to Shower
Instructions:
Stand-Alone Forms:
Changes to Home Medications: No
Discharge Medications:
DC Medications w/original date entered in [employer]
atorvastatin 40 mg tablet 40 mg PO HS High Cholesterol 10/10/24
levothyroxine 100 mcg tablet 100 mcg PO HS Thyroid 10/10/24
meloxicam 7.5 mg tablet 7.5 mg PO DAILY PRN Pain 10/10/24
pantoprazole 40 mg tablet,delayed release 40 mg PO DAILY PRN GERD 10/10/24
sertraline 100 mg tablet 100 mg PO HS Mental Health/Anxiety 10/10/24
cetirizine 10 mg tablet (Zyrtec) 10 mg PO HS PRN congestion 10/27/24
aspirin 81 mg tablet,delayed release 81 mg PO HS Blood Clot Prevention/Tx 01/26/25
calcium citrate 1,200 mg PO HS Supplement 01/26/25
denosumab 60 mg/mL subcutaneous syringe (Prolia) 60 mg SC [id number] OSTEOPEROSIS 01/26/25
turmeric 400 mg capsule 400 mg PO HS Supplement 01/26/25
Home Medication Changes
Pending Results: No
--- NOTE | 2025-02-05 07:49 | W.DCSUMMARY ---
Discharge Summary
Discharge Data
Date of Admission: 02/02/25
Date of Discharge: 02/05/25
-
Pending Results: No
Hospital Course
DATE OF ADMISSION: 02/02/25
DATE OF DISCHARGE: 02/05/25
DIAGNOSIS: Right liver tumor
PROCEDURE: Right partial liver lobectomy
HISTORY OF PRESENT ILLNESS:
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 On 08/01/24, she underwent a screening colonoscopy and was found to have a tumor in the terminal ileum. The biopsy revealed findings consistent
with a well-differentiated grade 1 neuroendocrine tumor. On 11/02/24, she underwent robotic resection of the right colon and terminal ileum, confirming a well-differentiated neuroendocrine tumor with three of 28 regional lymph nodes containing
metastatic cancer. Subsequently, she underwent metastatic workup, including CT scan, PET scan, and MRI, demonstrating a solitary metastatic tumor involving the dome of segment VIII of the liver. We reviewed the CT, PET, and MRI films and official
readings in my office. She had no complaints in the office. She has recovered nicely from her small bowel surgery. She denied abdominal pain, nausea, vomiting, poor appetite, or weight loss. She presented on 02/02/25 for liver resection.
PAST MEDICAL HISTORY: a small bowel endocrine tumor and hypothyroidism.
ALLERGIES: no medications.
MEDICATIONS:
aspirin 81 mg tablet HS
atorvastatin 40 mg PO HS
Calcium Citrate 1,200 mg PO HS
Zyrtee 10 mg Tablet 10 mg PO HS PRN
denosumab [ Prolia] 60 mg/ml Syr livia 60 mg SC [id number]
levothyroxine 100 mcg PO HS
meloxieam 7.5 mg Tablet 7.5 mg PO PRN PRN
Pantoprazole 40 mg Tablet PO DAILY PRN
REVIEW OF SYSTEMS: Unremarkable.
SOCIAL HISTORY: No EtOH or tobacco use.
FAMILY HISTORY: Non-contributory.
PHYSICAL EXAMINATION:
She was anicteric. Her head and neck examination revealed no lymphadenopathy or masses. The heart had a regular rhythm and rate and no murmurs. The chest was clear bilaterally. The abdomen was soft, nondistended, nontender, and without masses. She
had well-healed abdominal surgical scars.
HOSPITAL COURSE:
The patient presented to the hospital and underwent uneventful surgery. Postoperatively, the patient was transferred to the surgical floor, where she recovered without any problems. On postoperative day #3, she was discharged home. The patient�s
condition on discharged was stable.
Discharge Plan
-
Patient Disposition: Home (Routine Discharge)
Discharge Diagnosis/Procedures: hepatic metastasis of the neuroendocrine tumor
Condition: Fair
Diet: No restrictions
Activity: As tolerated and No strenuous activity
Driving Restrictions: Not until seen by your Dr
Bathing Restrictions: OK to Shower
Activity Restrictions/Additional Instructions:
Call Dr. Schmitt's office ([phone]) for a follow-up appointment.
Oxycodone, neurontin, and zofran prescriptions sent to the patient's pharmacy
Referrals:
Brandi Torrez DO [Family Provider, Family Practice]
Prescriptions:
Continued
atorvastatin 40 mg Tablet
40 mg PO HS
sertraline 100 mg Tablet
100 mg PO HS
meloxicam 7.5 mg Tablet
7.5 mg PO DAILY PRN (Reason: Pain)
levothyroxine 100 mcg Tablet
100 mcg PO HS
pantoprazole 40 mg Tablet,Delayed Release (Dr/Ec)
40 mg PO DAILY PRN (Reason: GERD)
cetirizine [Zyrtec] 10 mg Tablet
10 mg PO HS PRN (Reason: congestion)
aspirin 81 mg tablet,delayed release (DR/EC)
81 mg PO HS
turmeric 400 mg Capsule
400 mg PO HS
calcium citrate 1,200 MG gum
1,200 mg PO HS
Prolia 60 mg/mL Syringe
60 mg SC [id number]
Discharge Orders:
Discharge Patient (As Directed); Ordered 02/05/25
Ordered By: Narciso Schmitt
Discharge Date and Time
Print Language: CITIZEN OF [place]
--- NOTE | 2025-02-05 09:03 | CM ---
Patient is for discharge to home today, spouse and son to provide transport, IMM completed and placed on chart.
Plan; Home no needs.
[2025-02-05] MEDS: COLACE 100 MG PO (09:19)
[2025-02-05] MEDS: NEURONTIN 200 MG PO (09:19)
[2025-02-05] MEDS: ANESTHETIC LOZENGE 1 LOZENGE PO (11:21)
[2025-02-05] MEDS: ZOFRAN 4 MG IV (11:22)
[2025-02-05 13:19] VITALS: BP 146/79
== END 2025-02-05 14:51 | disposition home or self-care (01) | DRG 406 ==
LOC: 2 SOUTH 06:07
PROVIDERS: ADMITTING PHYSICIAN Surgery; FAMILY PHYSICIAN Family Medicine
PROC: 0FB10ZZ Excision of Right Lobe Liver, Open Approach (ICD-10-PCS; 2025-02-02)
DX: C78.7 Secondary malignant neoplasm of liver and intrahepatic bile duct (principal); C7A.012 Malignant carcinoid tumor of the ileum
CPT/HCPCS: 80053; 80076; 85027; 85610; 85730; 86850; 86900; 86901; 86920; 88305; 88307; 88329; 88331; 88341; 88342; 97163; 97167; C9250

== ENCOUNTER 2025-02-07 08:17 | Emergency (ER) | payer OTHER, SELFPAY ==
[2025-02-07 08:28] VITALS: BP 129/78
--- NOTE | 2025-02-07 09:17 | ED.GENMED ---
History of Present Illness
General
Chief Complaint: Abdominal Symptoms
Time Seen by Provider: 02/07/25 09:15
History of Present Illness
History of Present Illness:
FOCUSED PAST MEDICAL HISTORY
- Solitary liver metastatic disease from terminal ileal neuroendocrine tumor; she had resection of right colon and terminal ileum 11/02/2024
REVIEW OF OLD RECORDS
- The patient was admitted 02/02/2025 through 02/05/2025 here with right partial liver lobectomy performed by Dr. Schmitt
Note:
CHIEF COMPLAINT(S)
Constipation and suspected fecal impaction.
HISTORY OF PRESENT ILLNESS
The patient is a 69-year-old female with a history of neuroendocrine tumor involving the terminal ileum, which was resected in October. She was recently discharged following partial liver resection surgery. The patient presents today with
complaints of constipation. No rectal examination had been performed on her over the past few days prior to this visit.
PAST MEDICAL AND SURIGICAL HISTORY
History of neuroendocrine tumor resection involving the terminal ileum and recent partial liver resection.
PHYSICAL EXAM
General: Alert, no acute distress.
Skin: Warm, dry.
Head: Normocephalic, atraumatic.
Neck: Supple, trachea midline.
Eye Ears, nose, mouth and throat: Oral mucosa moist.
Cardiovascular: Normal peripheral perfusion, no edema.
Respiratory: Respirations are non-labored.
Gastrointestinal: Abdomen soft, non-tender on examination.
Back: Normal range of motion, Normal alignment.
Musculoskeletal: Normal range of motion, normal strength.
Neurological: Alert and oriented to person, place, time, and situation, no focal neurological deficit observed.
Psychiatric: Cooperative, appropriate mood & affect.
Rectal Examination: Relatively large fecal impaction noted.
PROBLEM LIST
- Acute: Fecal impaction
- Chronic: Neuroendocrine tumor
DIFFERENTIAL DIAGNOSIS
The Differential Diagnosis includes, in no particular order and is not limited to:
1. Fecal impaction
2. Bowel obstruction
3. Post-surgical ileus
4. Colorectal cancer
5. Rectal stricture
6. Medication-induced constipation
7. Rectal prolapse
8. Hypercalcemia
9. Hypothyroidism
10. Dehydration
SUMMARY OF ENCOUNTER
The patient, a 69-year-old female with a history of a neuroendocrine tumor and recent partial liver resection, was seen in the emergency department due to constipation and suspected fecal impaction. A rectal examination confirmed fecal impaction.
During the visit, an intervention was performed to loosen and remove a portion of the impacted fecal matter, which provided some relief to the patient.
PLAN
The patient was advised to use envo-bzp-quvagaq polyethylene glycol 3350 (Miralax), today and possibly tomorrow, to help soften the stools and facilitate bowel movements. It was also advised that the patient may consider using it daily during
similar episodes of constipation.
PATIENT EDUCATION AND COUNSELING
The patient was educated on the use of Miralax as a gentle yet effective option for alleviating constipation associated with fecal impaction. Instructions were given to use Miralax today and tomorrow, and to consider using it daily if similar
constipation issues persist.
FOLLOW-UP INSTRUCTIONS
The patient was encouraged to continue with any previously recommended medications by her primary doctor and to follow up with him as needed. She was also advised to contact the doctor if symptoms do not improve.
MEDICATION RECONCILIATION
1. Recommend logc-giy-qgduygr polyethylene glycol 3350 (Miralax) today and possibly tomorrow to aid with bowel movements.
MEDICAL DECISION MAKING
-Number and Complexity of Problems Addressed: Chronic conditions affecting care include a history of neuroendocrine tumor resection. Differential diagnosis considered included: fecal impaction, bowel obstruction, post-surgical ileus, colorectal
cancer, rectal stricture, medication-induced constipation, rectal prolapse, hypercalcemia, hypothyroidism, and dehydration.
-Data:
- Category 1: None specified.
- Category 2: Consulted patients known medical history of neuroendocrine tumor and recent liver surgery.
- Category 3: Discussed management of ongoing constipation with the patient based on prior interventions and treatments she had received.
DIAGNOSIS
1. Fecal Impaction (ICD-10: K56.41)
UPDATE
- I attempted disimpaction upon arrival
- Will give enema
- She has a soft nontender abdomen
- I disimpacted her a second time after the enema and was able to remove a lot more stool
- She was able to then have a bowel movement and feels markedly improved
- Recommended MiraLAX, she is already on Colace, we also gave her lactulose that she can take only
Past History
Past History
ED Past Medical History: HTN, Hypothyroidism and Psychiatric
ED Past Surgical History: None
Social History
Tobacco: Non-smoker
Alcohol: None
Drug: None
Personal:
Living: with family
Phy Exam
Physical Exam
Physical Exam:
See HPI
Course
Orders/Labs/Results
Orders:
Orders
02/07/25 09:28
Enema- Treatment ONCE
Type: Milk of Molasses
02/07/25 11:31
Lactulose [Duphalac/Chronulac] 20 grams PO NOW STA
Ondansetron Orally Disint [Zofran Odt (Orally Disintegrating)] 4 mg PO NOW STA
02/07/25 11:56
Lactulose [Duphalac/Chronulac] 20 grams .ROUTE .STK-MED ONE
02/07/25 11:57
Ondansetron Orally Disint [Zofran Odt (Orally Disintegrating)] 4 mg .ROUTE .STK-MED ONE
Vital Signs
Initial and Last Documented VS:
Initial Vital Signs
Temp Pulse Resp BP Pulse Ox
36.4 C 74 16 129/78 99
02/07/25 08:28 02/07/25 08:28 02/07/25 08:28 02/07/25 08:28 02/07/25 08:28
Last Documented Vital Signs
Temp Pulse Resp BP Pulse Ox
36.4 C 74 16 129/78 99
02/07/25 08:28 02/07/25 08:28 02/07/25 08:28 02/07/25 08:28 02/07/25 09:20
*Pulse Oximetry
SaO2: 99
Oxygen Mode of Delivery: Room air
Patient hypoxic: no
*Critical Care Note
Total Time (30-74mins, 75-104mins- exclusive of procedures): Not Applicable
ED Attending Note
-
Portions of this chart may have been created with voice recognition software.� Occasional wrong word or��sound alike� substitutions may have occurred due to the inherent limitations of voice recognition software.
Discharge Plan
Departure
Patient Disposition: Home (Routine Discharge)
Date of Disposition: 02/07/25
Time of Disposition: 12:10
Patient with high blood pressure during this ER visit?: Yes
Discharge Problem:
Fecal impaction in rectum
Instructions: Constipation, Adult (DC), Fecal Impaction (DC)
Prescriptions:
No Action
atorvastatin 40 mg Tablet
40 mg PO HS
sertraline 100 mg Tablet
100 mg PO HS
meloxicam 7.5 mg Tablet
7.5 mg PO DAILY PRN (Reason: Pain)
levothyroxine 100 mcg Tablet
100 mcg PO HS
pantoprazole 40 mg Tablet,Delayed Release (Dr/Ec)
40 mg PO DAILY PRN (Reason: GERD)
cetirizine [Zyrtec] 10 mg Tablet
10 mg PO HS PRN (Reason: congestion)
aspirin 81 mg tablet,delayed release (DR/EC)
81 mg PO HS
turmeric 400 mg Capsule
400 mg PO HS
calcium citrate 1,200 MG gum
1,200 mg PO HS
Prolia 60 mg/mL Syringe
60 mg SC [id number]
Referrals:
Brandi Torrez DO [Family Provider, Family Practice]
Activity Restrictions/Additional Instructions:
You had a large rectal fecal impaction that I disimpacted on 2 attempts. We also gave you a milk of molasses enema. I have given you a dose of lactulose that you could take at home but qcah-vtx-yclhepi MiraLAX on a daily basis may be better and
more comfortable to take. Return if worse or other concerns.
Interventions
Interventions:
*General Assessment Last Done: 02/07/25 11:22
*Neglect/Abuse Screening Last Done: 02/07/25 08:28
*ED COVID-19 Vaccine History Last Done: 02/07/25 11:22
*ED Influenza Vaccine History Last Done: 02/07/25 11:22
[facility] Fall Risk Assessment Tool Last Done: 02/07/25 11:21
*Risk Screen - Suicide (C-SSRS) Last Done: 02/07/25 08:28
ZX-Joeayx-Orpfctmebj Assessment Last Done: 02/07/25 11:21
Discharge Date and Time
Print Language: INDONESIAN
[2025-02-07] MEDS: ZOFRAN ODT (ORALLY DISINTEGRATING) 4 MG PO (11:58)
[2025-02-07] MEDS: DUPHALAC/CHRONULAC 20 GRAMS PO (11:58)
== END 2025-02-07 12:26 | disposition home or self-care (01) ==
LOC: EMR 08:17
PROVIDERS: EMERGENCY PHYSICIAN Emergency Medicine; FAMILY PHYSICIAN Family Medicine
DX: K56.41 Fecal impaction (principal); I10 Essential (primary) hypertension; E03.9 Hypothyroidism, unspecified; C7B.8 Other secondary neuroendocrine tumors; C78.7 Secondary malignant neoplasm of liver and intrahepatic bile duct; Z90.49 Acquired absence of other specified parts of digestive tract; Z90.89 Acquired absence of other organs; Z79.82 Long term (current) use of aspirin
CPT/HCPCS: 99283